=== PATIENT | male | born 1990 | race Caucasian/White ===

== ENCOUNTER 2023-11-04 13:02 | Emergency (ER) | payer OTHER, SELFPAY ==
[2023-11-04 13:09] VITALS: BP 127/87
[2023-11-04 13:26] LABS: % Basophils 0.3 % (0-2); % Eosinophils 0.2 % (0-6); % Immature Granulocytes 0.1 % (0-0.5); % Monocytes 4.8 % (1.7-9.3); % Neutrophils 82.6 % (42.2-75.2); Absolute Lymphocytes 1.1 10^3/uL (1.2-3.4); Absolute Monocytes 0.4 10^3/uL (0.1-0.6); Absolute Neutrophils 7.3 10^3/uL (1.4-6.5); Hemoglobin 14.6 g/dL (13.0-18.0); Mean Corpuscular Hgb 30.5 pg (27.0-31.0); Mean Platelet Volume 9.8 fL (7.4-10.4); Nucleated Red Blood Cells % 0 % (-); Platelet Count 315 10^3/uL (130-400); Red Blood Cell Count 4.78 10^6/uL (4.70-6.10); White Blood Cell Count 8.8 10^3/uL (4.8-10.8)
[2023-11-04 13:39] LABS: ALT (SGPT) 39 U/L (0-50); AST (SGOT) 31 U/L (17-59); Alkaline Phosphatase 90 U/L (38-126); Blood Urea Nitrogen 14 mg/dl (9-20); Calcium 10.1 mg/dl (8.4-10.2); Carbon Dioxide 28 mmol/L (22-30); Chloride 102 mmol/L (98-107); Glucose 108 mg/dl (70-99); Potassium 3.9 mmol/L (3.5-5.1); Sodium 138 mmol/L (135-145); Total Bilirubin 1.8 mg/dl (0.2-1.3); eGFR > 60.00
[2023-11-04 15:42] VITALS: BP 126/83
--- NOTE | 2023-11-04 15:44 | ED.GENMED ---
History of Present Illness
General
Chief Complaint: Numbness
Time Seen by Provider: 11/04/23 15:07
Travel History
Have you had any contact with someone who has COVID-19?: No
Do you have any symptoms of coronavirus? Fever > 100 degrees, chills, cough, shortness of breath, sore throat, loss of taste or smell, muscle aches, or headache?: No
History of Present Illness
History of Present Illness:
33-year-old male with history of localized testicular cancer status postorchiectomy who presents to the emergency department for evaluation of generalized muscle fatigue and paresthesias ongoing for the past month. He states he feels physically
exhausted after even minimal exertion. He denies any falls or gait instability. Denies any true numbness only paresthesias. He is uncertain exactly where the symptoms started but feels it may have been in the feet. Notes chronic fatigue even
with the arms for upright position for more than several seconds. Denies any associated chest pain or shortness of breath. No night sweats or weight loss. Denies any recent vaccinations or viral illnesses.
Review of Systems
Review of Systems
Allergies reviewed?: Yes
All Other Systems: ROS reviewed and negative except as documented in HPI and ROS
Phy Exam
Physical Exam
Physical Exam:
GEN: Well appearing, NAD, WDWN
HEENT: Oral mucosa moist, no scleral icterus, no nasal congestion
Cardiac: Regular rate
Lung: No respiratory distress, no tachypnea
MSK: No gross deformity or injuries. No visible muscular atrophy
Skin: Good color, no pallor or jaundice, no rashes
Neuro: AO x3; CN II-XII grossly intact. BUE strength 5/5 in all keita, sensation intact and symmetric. BLE strength 5/5 in all keita, sensation intact and symmetric. Biceps, brachioradialis, patellar, and Achilles reflexes are 2+ and symmetric to
all extremities, no clonus or hyperreflexia noted. Gait is normal
Psych: Calm, cooperative
Course
Orders/Labs/Results
Orders:
Orders
11/04/23 13:17
CMP [Comprehensive Metabolic Panel] Urgent
Complete Blood Count/With Diff Urgent
Creatine Phosphokinase Urgent
Folate Urgent
TSH Reflex To Free T4 Urgent
Vitamin B12 Urgent
11/04/23 16:03
Add On- LAB Urgent
Tests Added?: B12, folate, TSH w/reflex, CPK
Abnormal Lab Results
11/04/23
13:17
Absolute Neuts (auto) 7.3 H 10^3/uL
(1.4-6.5)
Absolute Lymphs (auto) 1.1 L 10^3/uL
(1.2-3.4)
Neutrophils % 82.6 H %
(42.2-75.2)
Lymphocytes % 12.0 L %
(20.5-51.1)
Glucose 108 H mg/dl
(70-99)
Total Bilirubin 1.8 H mg/dl
(0.2-1.3)
11/04/23 13:17
11/04/23 13:17
Vital Signs
Initial and Last Documented VS:
Initial Vital Signs
Pulse Resp BP Pulse Ox
114 16 127/87 100
11/04/23 13:09 11/04/23 13:09 11/04/23 13:09 11/04/23 13:09
Last Documented Vital Signs
Pulse Resp BP Pulse Ox
106 20 126/83 97
11/04/23 17:00 11/04/23 17:00 11/04/23 15:42 11/04/23 17:00
MDM/Problems Addressed
MDM/Problems Addressed:
Patient's neurologic exam was unremarkable. He displays strong evidence for muscular atrophy. No clear ascending nature to suggest Guillain-Ellison� syndrome. His labs are unremarkable, negative B12 and folate screenings. Unclear etiology,
recommend primary care outpatient EMG
*Critical Care Note
Total Time (30-74mins, 75-104mins- exclusive of procedures): Not Applicable
ED Attending Note
-
Portions of this chart may have been created with voice recognition software.� Occasional wrong word or��sound alike� substitutions may have occurred due to the inherent limitations of voice recognition software.
Discharge Plan
Departure
Patient Disposition: Home (Routine Discharge)
Date of Disposition: 11/04/23
Time of Disposition: 17:04
Patient with high blood pressure during this ER visit?: No
Discharge Problem:
Muscular fatigue
Referrals:
Edgardo Chávez, [Family Provider] -
Activity Restrictions/Additional Instructions:
The cause of your symptoms is not clear at this time. Your labs are reassuring. Your symptoms do not suggest an acute or inflammatory neurologic addition. We have several lab test pending currently that may help to discern the cause, these will
result tomorrow. If all of these are normal you may require an electromyelogram that your primary doctor can order to detect any peripheral nerve disease.
Interventions
Interventions:
*Risk Screen - Suicide Last Done: 11/04/23 17:07
*General Assessment Last Done: 11/04/23 17:07
*Neglect/Abuse Screening Last Done: 11/04/23 17:07
ED- Fall Risk Assessment Last Done: 11/04/23 17:07
*ED COVID-19 Vaccine History Last Done: 11/04/23 13:09
*Nursing Disposition Last Done: 11/04/23 17:17
ED- Neurological Assessment Last Done: 11/04/23 15:45
Discharge Date and Time
Discharge Date/Time: 11/04/23 17:20
Print Language: AZERI
[2023-11-04 16:39] LABS: Creatine Phosphokinase 88 U/L (55-170)
[2023-11-04 17:40] LABS: TSH Reflex To Free T4 0.85 uIU/ml (0.47-4.68)
[2023-11-04 18:16] LABS: Folate 19.1 ng/ml (2.76-20); Vitamin B12 444 pg/ml (239-931)
== END 2023-11-04 17:20 | disposition home or self-care (01) ==
LOC: EMR 13:02
PROVIDERS: Emergency Medicine; EMERGENCY PHYSICIAN Student in an Organized Health Care Education/Training Program; FAMILY PHYSICIAN Internal Medicine
DX: R53.83 Other fatigue (principal); R20.2 Paresthesia of skin; M62.89 Other specified disorders of muscle; Z85.47 Personal history of malignant neoplasm of testis; Z90.79 Acquired absence of other genital organ(s)
CPT/HCPCS: 99283; 80053; 82550; 82607; 82746; 84443; 85025

== ENCOUNTER → 2023-11-10 07:40 | Outpatient (REF) | payer OTHER, SELFPAY | LOC: EMG 07:40 | PROVIDERS: ATTENDING PHYSICIAN Internal Medicine | DX: R20.0 Anesthesia of skin (principal) | CPT/HCPCS: 95886; 95913 ==

== ENCOUNTER → 2023-11-10 10:12 | Outpatient (REF) | payer OTHER, SELFPAY | LOC: RAD 10:12 | PROVIDERS: ATTENDING PHYSICIAN Internal Medicine | DX: R06.02 Shortness of breath (principal) | CPT/HCPCS: 36415; 71046 ==

== ENCOUNTER → 2024-07-23 16:10 | Outpatient (REF) | payer OTHER, SELFPAY | LOC: RAD 16:10 | PROVIDERS: ATTENDING PHYSICIAN Internal Medicine | DX: M54.2 Cervicalgia (principal) | CPT/HCPCS: 72050 ==

== ENCOUNTER → 2024-10-10 18:05 | Outpatient (REF) | payer OTHER, SELFPAY | LOC: MRI 3T 18:05 | PROVIDERS: ATTENDING PHYSICIAN Nurse Practitioner Family; FAMILY PHYSICIAN Hospitalist | DX: G96.198 Other disorders of meninges, not elsewhere classified (principal); C62.90 Malignant neoplasm of unspecified testis, unspecified whether descended or undescended | CPT/HCPCS: 70553; 72156; A9575 ==